=== PATIENT | male | born 1945 | race Caucasian/White ===

== ENCOUNTER → 2016-04-05 | Outpatient (CLI) | payer MEDICARE, OTHER ==
--- NOTE | 2016-04-05 13:48 | KCIC ---
PROCEDURE MR of the left shoulder HISTORY Left shoulder pain. Pain full range of movement. TECHNIQUE Standard noncontrast images are obtained. COMPARISON None FINDINGS The acromioclavicular joint is mildly degenerative. Diffuse thickening of the supraspinatus and the infraspinatus tendons with increased signal compatible with tendinosis. No significant subdeltoid bursal fluid. Subscapularis tendon demonstrates some partial tearing. No advanced rotator cuff muscle atrophy. Small glenohumeral joint effusion. Primary osteoarthritis at the glenohumeral joint, most severe chondromalacia at the posterior glenoid. Degenerative tear of the superior, posterior and inferior labrum. Biceps tendinosis. There is no rupture or dislocation of the biceps tendon. No bone lesion. No acute fracture. There is some mild focal edema type signal within the subcutaneous fat at the posterior shoulder may represent a contusion. IMPRESSION 1. Generalized rotator cuff tendinosis. Partial subscapularis tendon tear. 2. 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 3. Superior, posterior and inferior labrum degenerative tearing. 4. Biceps tendinosis. 5. Small joint effusion. Electronically signed by: Serg Montenegro MD (Apr 05, 2016 13:46:59)
== END | disposition home or self-care (01) ==
LOC: KCIC MRI 12:53
PROVIDERS: ATTEND Family Medicine
DX: M19.012 Primary osteoarthritis, left shoulder (principal); M94.212 Chondromalacia, left shoulder; M25.412 Effusion, left shoulder; S46.912A Strain of unspecified muscle, fascia and tendon at shoulder and upper arm level, left arm, initial encounter; X58.XXXA Exposure to other specified factors, initial encounter; Y93.89 Activity, other specified; Y92.89 Other specified places as the place of occurrence of the external cause; Y99.8 Other external cause status
CPT/HCPCS: 73221